=== PATIENT | male | born 1995 | race Caucasian/White ===

== ENCOUNTER 2017-10-04 00:50 | Emergency (ER) | payer SELFPAY ==
[~2017-10-04] VITALS: Ht 180.3 cm; Wt 160.0 kg
[2017-10-04] MEDS ORDERED: SODIUM CHLORIDE 0.9% 1,000 ML IV ONE ×3 (01:40→04:37)
[2017-10-04] MEDS ORDERED: INSULIN REGULAR (HUMULIN R) 300UNITS/3ML SUBCUT ONE (01:45)
[2017-10-04] MEDS ORDERED: KETOROLAC 30MG/ML VIAL IV ONE (01:45)
[2017-10-04] MEDS ORDERED: LORAZEPAM 2MG/ML CPJ IV ONE (01:45)
[2017-10-04] MEDS ORDERED: ONDANSETRON HCL 4MG/2ML VIAL IV ONE (02:30)
[2017-10-04 03:44] LABS: CLARITY URINE CLEAR (CLEAR); COLOR URINE YELLOW (YELLOW); KETONES URINE 4+ (NEGATIVE); LEUKOCYTE ESTERASE URINE NEGATIVE (NEGATIVE); NITRITE URINE NEGATIVE (NEGATIVE); OCCULT BLOOD URINE TRACE (NEGATIVE); PROTEIN URINE NEGATIVE (NEGATIVE); SPECIFIC GRAVITY URINE 1.035 (1.005-1.030); UROBILINOGEN URINE 0.2 E.U./dL (0.2-1.0)
[2017-10-04 03:51] LABS: CHLORIDE 97 mEq/L (98-107)
[2017-10-04 03:55] LABS: ETHANOL BLOOD < 10 mg/dL
[2017-10-04 04:06] LABS: *AMPHETAMINES SCREEN URINE PRESUMTIVE POSITIVE (NEGATIVE); *BARBITURATES SCREEN URINE NEGATIVE (NEGATIVE); *BENZODIAZEPINES SCREEN URINE NEGATIVE (NEGATIVE); *COCAINE SCREEN URINE NEGATIVE (NEGATIVE); METHADONE URINE SCREEN NEGATIVE (NEGATIVE)
[2017-10-04 04:08] LABS: CANNABINOID URINE SCREEN PRESUMTIVE POSITIVE (NEGATIVE); PHENCYCLIDINE URINE SCREEN NEGATIVE (NEGATIVE)
[2017-10-04 04:09] LABS: OPIATES URINE SCREEN NEGATIVE (NEGATIVE)
[2017-10-04 04:37] LABS: BASOPHILS % 0.4 % (0.0-2.0); EOSINOPHILS % 0.1 % (0.0-5.0); HEMATOCRIT. 38.7 % (42.0-52.0); MEAN CORPUSCULAR VOLUME 83.4 fL (80.0-94.0); MONOCYTES % 4.7 % (2.0-8.0); NEUTROPHILS % 83.8 % (40.0-76.0); PLATELET 256 x1000/uL (130-400); RED BLOOD CELL COUNT 4.64 mill/uL (4.7-6.1); RED CELL DISTRIBUTION WIDTH 13.7 % (11.6-14.6)
[2017-10-04 04:44] LABS: HEMOGLOBIN. 13.4 g/dL (14.0-18.0)
[2017-10-04] MEDS ORDERED: INSULIN REGULAR (DRIP) 100 UNITS in SODIUM CHLORIDE 0.9% 99 ML IV SCH (04:45)
[2017-10-04] MEDS ORDERED: LORAZEPAM 2MG/ML CPJ IM ONE (06:00)
[2017-10-04] MEDS ORDERED: SODIUM CHLORIDE 0.9% 1,000 ML IV SCH (06:39)
[2017-10-04] MEDS ORDERED: NA PHOS,M-B/NA PHOS,DI-BA ENEMA 118ML PR PRN (06:45)
[2017-10-04] MEDS ORDERED: ACETAMINOPHEN 325MG TABLET PO PRN (06:45)
[2017-10-04] MEDS ORDERED: CLONIDINE 0.1MG TABLET PO PRN (06:45)
[2017-10-04] MEDS ORDERED: DEXTROSE 50% WATER 50ML SYRINGE IV PRN (06:45)
[2017-10-04] MEDS ORDERED: IPRATROPIUM/ALBUTEROL 0.5-3(2.5)MG/3ML NEB INH PRN (06:45)
[2017-10-04] MEDS ORDERED: ZOLPIDEM TARTRATE 5MG TABLET PO PRN (06:45)
[2017-10-04] MEDS ORDERED: LORAZEPAM 0.5MG TABLET PO PRN (06:45)
[2017-10-04] MEDS ORDERED: KETOROLAC 15MG/ML VIAL IV PRN (06:45)
[2017-10-04] MEDS ORDERED: GUAIFENESIN 200MG/10ML SUGAR FREE UDC PO PRN (06:45)
[2017-10-04] MEDS ORDERED: DOCUSATE SODIUM 100MG CAPSULE PO PRN (06:45)
[2017-10-04] MEDS ORDERED: ONDANSETRON HCL 4MG/2ML VIAL IV PRN (06:45)
[2017-10-04] MEDS ORDERED: MAGNESIUM/ALUMINUM HYDROXIDE/SIMETHICONE 30ML UDC PO PRN (06:45)
[2017-10-04] MEDS ORDERED: DIPHENHYDRAMINE 50MG/ML VIAL IV PRN (06:45)
[2017-10-04 07:13] LABS: CHLORIDE 99 mEq/L (98-107)
[2017-10-04 07:20] LABS: LDL CHOLESTEROL 65 mg/dL (5-100)
[2017-10-04 07:22] LABS: HDL CHOLESTEROL 40 mg/dL (40-59)
[2017-10-04] MEDS ORDERED: INSULIN LISPRO 100 UNITS/ML SUBCUT SCH ×2 (07:50→08:20)
[2017-10-04] MEDS ORDERED: DIPHENHYDRAMINE 50MG/ML VIAL IM ONE (08:30)
[2017-10-04] MEDS ORDERED: OLANZAPINE 10 MG/VIAL IM ONE (08:30)
[2017-10-04] MEDS ORDERED: POTASSIUM CHLORIDE 20MEQ TABLET SR PO ONE (08:30)
[2017-10-04 08:43] LABS: CHLORIDE 100 mEq/L (98-107)
[2017-10-04 08:45] VITALS: BP 108/72
[2017-10-04] MEDS ORDERED: BLOOD SUGAR DIAGNOSTIC STRIP TEST SCH (09:00)
[2017-10-04] MEDS ORDERED: FAMOTIDINE 20MG TABLET PO SCH (09:00)
[2017-10-04] MEDS ORDERED: INSULIN GLARGINE UD 100 UNITS/ML SYR SUBCUT SCH (10:00)
[2017-10-05] MEDS ORDERED: GABA800T97 PO (09:15)
[2017-10-05] MEDS ORDERED: QUET300T2 PO (09:15)
== END 2017-10-04 09:48 | disposition left against medical advice (07) ==
LOC: ER 00:50 → EDBEDREQ 05:24 → ENRESERV 06:28 → CANBEDREQ 08:00 → ER 09:48
DX: E10.10 Type 1 diabetes mellitus with ketoacidosis without coma (principal); E10.65 Type 1 diabetes mellitus with hyperglycemia; R00.0 Tachycardia, unspecified; F15.10 Other stimulant abuse, uncomplicated; F17.200 Nicotine dependence, unspecified, uncomplicated; Z98.890 Other specified postprocedural states
CPT/HCPCS: 36415; 80048; 80053; 80061; 80305; 81003; 82010; 82962; 83036; 83690; 85025; 96361; 96365; 96366; 96372; 96375; 99291; G0482; J1815; J1885; J2060; J2405; J7030; Z7610; J7050

== ENCOUNTER 2017-10-04 19:02 | Inpatient (IN) | payer BC ==
[~2017-10-04] VITALS: Ht 175.3 cm; Wt 67.1 kg
[2017-10-04] MEDS ORDERED: MORPHINE SULFATE 4 MG/ML CPJ (NOT FOR IM USE) IV STA (21:09)
[2017-10-04] MEDS ORDERED: SODIUM CHLORIDE 0.9% 1,000 ML IV ONE ×3 (21:09)
[2017-10-04] MEDS ORDERED: ONDANSETRON HCL 4MG/2ML VIAL IV STA (21:09)
[2017-10-04 23:33] LABS: HEMATOCRIT. 32.3 % (42.0-52.0); HEMOGLOBIN. 10.8 g/dL (14.0-18.0); MEAN CORPUSCULAR VOLUME 86.7 fL (80.0-94.0); MEAN PLATELET VOLUME 8.8 fl (7.4-10.4); PLATELET 222 x1000/uL (130-400); RED BLOOD CELL COUNT 3.73 mill/uL (4.7-6.1); RED CELL DISTRIBUTION WIDTH 13.4 % (11.6-14.6)
[2017-10-04 23:41] LABS: CHLORIDE 93 mEq/L (98-107)
[2017-10-04] MEDS ORDERED: INSULIN REGULAR (HUMULIN R) 300UNITS/3ML SUBCUT ONE (23:45)
[2017-10-04 23:49] LABS: PLATELET ESTIMATE NORMAL
[2017-10-04 23:50] LABS: BETA HYDROXYBUTYRATE 9.8 mMol/L (0.0-0.3)
[2017-10-04 23:56] LABS: INR 1.2; PROTHROMBIN TIME 11.8 sec (9.1-11.1)
[2017-10-05] VITALS (9 sets, daily range): BP systolic 100–153; BP diastolic 50–77
[2017-10-05] MEDS ORDERED: ONDANSETRON HCL 4MG/2ML VIAL IV ONE (00:15)
[2017-10-05 01:14] LABS: CLARITY URINE CLEAR (CLEAR); COLOR URINE YELLOW (YELLOW); KETONES URINE 4+ (NEGATIVE); LEUKOCYTE ESTERASE URINE NEGATIVE (NEGATIVE); NITRITE URINE NEGATIVE (NEGATIVE); OCCULT BLOOD URINE TRACE (NEGATIVE); PROTEIN URINE NEGATIVE (NEGATIVE); SPECIFIC GRAVITY URINE 1.027 (1.005-1.030); UROBILINOGEN URINE 0.2 E.U./dL (0.2-1.0)
[2017-10-05] MEDS ORDERED: ONDANSETRON HCL 4MG/2ML VIAL IV STA (02:27)
[2017-10-05] MEDS ORDERED: INSULIN REGULAR (DRIP) 100 UNITS in SODIUM CHLORIDE 0.9% 100 ML IV NR (02:27)
[2017-10-05] MEDS ORDERED: SODIUM CHLORIDE 0.9% 1,000 ML IV ONE (02:27)
[2017-10-05 03:08] LABS: PHOSPHORUS 5.3 mg/dL (2.5-4.9)
[2017-10-05 04:44] LABS: CHLORIDE 99 mEq/L (98-107)
[2017-10-05 05:56] LABS: CHLORIDE 101 mEq/L (98-107)
[2017-10-05] MEDS ORDERED: NA PHOS,M-B/NA PHOS,DI-BA ENEMA 118ML PR PRN (08:15)
[2017-10-05] MEDS ORDERED: DOCUSATE SODIUM 100MG CAPSULE PO PRN (08:15)
[2017-10-05] MEDS ORDERED: DIPHENHYDRAMINE 50MG/ML VIAL IV PRN (08:15)
[2017-10-05] MEDS ORDERED: ACETAMINOPHEN 650MG/20.3ML UDC GT PRN (08:15)
[2017-10-05] MEDS ORDERED: CLONIDINE 0.1MG TABLET PO PRN (08:15)
[2017-10-05] MEDS ORDERED: ACETAMINOPHEN 650MG SUPP PR PRN (08:15)
[2017-10-05] MEDS ORDERED: GUAIFENESIN 200MG/10ML SUGAR FREE UDC PO PRN (08:15)
[2017-10-05] MEDS ORDERED: MAGNESIUM/ALUMINUM HYDROXIDE/SIMETHICONE 30ML UDC PO PRN (08:15)
[2017-10-05] MEDS ORDERED: IPRATROPIUM/ALBUTEROL 0.5-3(2.5)MG/3ML NEB INH PRN (08:15)
[2017-10-05] MEDS ORDERED: DEXTROSE 50% WATER 50ML SYRINGE IV PRN ×2 (08:15)
[2017-10-05] MEDS ORDERED: ACETAMINOPHEN 325MG TABLET PO PRN (08:15)
[2017-10-05] MEDS ORDERED: HYDROCODONE/ACETAMINOPHEN 10/325MG TABLET PO PRN (08:15)
[2017-10-05 08:20] LABS: CHLORIDE 105 mEq/L (98-107)
[2017-10-05] MEDS ORDERED: SODIUM CHLORIDE 0.45% 1,000 ML IV SCH (09:00)
[2017-10-05] MEDS ORDERED: INSULIN REGULAR (DRIP) 100 UNITS in SODIUM CHLORIDE 0.9% 100 ML IV SCH (09:00)
[2017-10-05] MEDS: BLOOD SUGAR DIAGNOSTIC STRIP TEST SCH ×11 (09:00→23:39)
[2017-10-05] MEDS ORDERED: GABA800T97 PO (09:15)
[2017-10-05] MEDS ORDERED: QUET300T2 PO (09:15)
[2017-10-05] MEDS: ONDANSETRON HCL 4MG/2ML VIAL IV PRN (09:32)
[2017-10-05] MEDS: FAMOTIDINE 20MG/2ML VIAL IV SCH ×2 (09:32→20:45)
[2017-10-05] MEDS: HYDROCODONE/ACETAMINOPHEN 5/325MG TABLET PO PRN ×2 (09:37→20:46)
[2017-10-05 10:04] LABS: CHLORIDE 105 mEq/L (98-107)
[2017-10-05 10:10] LABS: PHOSPHORUS 2.8 mg/dL (2.5-4.9)
[2017-10-05 10:34] LABS: TOTAL IRON BINDING CAPACITY 207 ug/dL (250-450)
[2017-10-05] MEDS: DEXT 5%/0.45% NACL 1000ML 1,000 ML IV SCH ×3 (11:21→19:32)
[2017-10-05] MEDS: GABAPENTIN 400MG CAPSULE PO SCH ×3 (11:22→22:25)
[2017-10-05] MEDS: QUETIAPINE FUMARATE 50MG TABLET PO SCH ×3 (11:22→21:39)
[2017-10-05] MEDS: METOCLOPRAMIDE HCL 10MG/2ML VIAL IV SCH ×3 (11:22→23:38)
[2017-10-05] MEDS: SODIUM CHLORIDE 0.9% INJ 3ML FLUSH IVF SCH ×2 (13:10→21:39)
[2017-10-05 15:39] LABS: CLARITY URINE CLEAR (CLEAR); COLOR URINE YELLOW (YELLOW); KETONES URINE 3+ (NEGATIVE); LEUKOCYTE ESTERASE URINE NEGATIVE (NEGATIVE); NITRITE URINE NEGATIVE (NEGATIVE); OCCULT BLOOD URINE 2+ (NEGATIVE); PROTEIN URINE 1+ (NEGATIVE); SPECIFIC GRAVITY URINE 1.029 (1.005-1.030); UROBILINOGEN URINE 0.2 E.U./dL (0.2-1.0)
[2017-10-05 16:25] LABS: *AMPHETAMINES SCREEN URINE NEGATIVE (NEGATIVE); *BARBITURATES SCREEN URINE NEGATIVE (NEGATIVE); *BENZODIAZEPINES SCREEN URINE NEGATIVE (NEGATIVE); *COCAINE SCREEN URINE NEGATIVE (NEGATIVE); METHADONE URINE SCREEN NEGATIVE (NEGATIVE)
[2017-10-05 16:26] LABS: CANNABINOID URINE SCREEN PRESUMTIVE POSITIVE (NEGATIVE); OPIATES URINE SCREEN PRESUMTIVE POSITIVE (NEGATIVE); PHENCYCLIDINE URINE SCREEN NEGATIVE (NEGATIVE)
[2017-10-05 17:12] LABS: CHLORIDE 110 mEq/L (98-107)
[2017-10-05] MEDS ORDERED: POTASSIUM CHLORIDE 20MEQ TABLET SR PO NR (19:00)
[2017-10-06] MEDS ORDERED: DEXTROSE 50% WATER 50ML SYRINGE IV PRN
[2017-10-06] MEDS: INSULIN LISPRO 100 UNITS/ML SUBCUT SCH ×4 (00:26→17:49)
[2017-10-06] MEDS: BLOOD SUGAR DIAGNOSTIC STRIP TEST SCH ×3 (05:09→17:35)
[2017-10-06] MEDS: METOCLOPRAMIDE HCL 10MG/2ML VIAL IV SCH ×3 (05:27→17:49)
[2017-10-06] MEDS: GABAPENTIN 400MG CAPSULE PO SCH ×3 (05:27→21:26)
[2017-10-06] MEDS: SODIUM CHLORIDE 0.9% INJ 3ML FLUSH IVF SCH ×3 (05:28→22:00)
[2017-10-06 05:34] LABS: BASOPHILS % 0.3 % (0.0-2.0); EOSINOPHILS % 0.7 % (0.0-5.0); HEMATOCRIT. 32.9 % (42.0-52.0); HEMOGLOBIN. 11.5 g/dL (14.0-18.0); LYMPHOCYTES % 25.7 % (20.0-50.0); MEAN CORPUSCULAR HEMOGLOBIN 29.5 pg (28.0-32.0); MEAN CORPUSCULAR VOLUME 84.4 fL (80.0-94.0); MEAN PLATELET VOLUME 7.7 fl (7.4-10.4); MONOCYTES % 6.9 % (2.0-8.0); NEUTROPHILS % 66.4 % (40.0-76.0); PLATELET 202 x1000/uL (130-400); RED CELL DISTRIBUTION WIDTH 13.5 % (11.6-14.6)
[2017-10-06 05:39] VITALS: BP 109/65
[2017-10-06 05:49] LABS: CHLORIDE 108 mEq/L (98-107)
[2017-10-06 06:00] LABS: PHOSPHORUS 1.3 mg/dL (2.5-4.9)
[2017-10-06 06:01] LABS: LDL CHOLESTEROL 54 mg/dL (5-100)
[2017-10-06 06:02] LABS: HDL CHOLESTEROL 26 mg/dL (40-59)
[2017-10-06] MEDS ORDERED: INSULIN LISPRO 100 UNITS/ML SUBCUT SCH (08:20)
[2017-10-06] MEDS: FAMOTIDINE 20MG/2ML VIAL IV SCH ×2 (09:00→21:26)
[2017-10-06] MEDS: QUETIAPINE FUMARATE 50MG TABLET PO SCH ×3 (09:45→21:26)
[2017-10-06 09:55] VITALS: BP 145/80
[2017-10-06] MEDS ORDERED: POTASSIUM PHOS,M-BASIC-D-BASIC 30 MMOL in SODIUM CHLORIDE 0.9% 500 ML IV NR (11:00)
[2017-10-06] MEDS: ONDANSETRON HCL 4MG/2ML VIAL IV PRN (12:32)
[2017-10-06 12:35] VITALS: BP 131/70
[2017-10-06] MEDS: HYDROCODONE/ACETAMINOPHEN 5/325MG TABLET PO PRN ×3 (12:35→22:18)
[2017-10-06 17:56] VITALS: BP 143/81
[2017-10-06 20:00] VITALS: BP 138/77
[2017-10-07] MEDS: BLOOD SUGAR DIAGNOSTIC STRIP TEST SCH ×3 (00:55→12:00)
[2017-10-07] MEDS: METOCLOPRAMIDE HCL 10MG/2ML VIAL IV SCH ×3 (00:56→12:00)
[2017-10-07] MEDS: SODIUM CHLORIDE 0.9% INJ 3ML FLUSH IVF SCH (05:26)
[2017-10-07] MEDS: GABAPENTIN 400MG CAPSULE PO SCH (05:27)
[2017-10-07] MEDS: INSULIN LISPRO 100 UNITS/ML SUBCUT SCH ×3 (05:31→12:00)
[2017-10-07 06:00] VITALS: BP 110/65
[2017-10-07] MEDS: HYDROCODONE/ACETAMINOPHEN 5/325MG TABLET PO PRN ×2 (06:21→10:43)
[2017-10-07] MEDS: QUETIAPINE FUMARATE 50MG TABLET PO SCH (08:20)
[2017-10-07] MEDS: FAMOTIDINE 20MG/2ML VIAL IV SCH (09:32)
[2017-10-07 10:00] VITALS: BP 143/72
[2017-10-07 11:23] VITALS: BP 143/72
== END 2017-10-07 13:00 | disposition home or self-care (01) | DRG 682 ==
LOC: ER 19:02 → CVICU 10-05 05:30 → EDBEDREQTM 10-05 05:35 → EDBEDREQ 10-05 05:35 → ENRESERV 10-05 06:48
PROVIDERS: ADMIT Family Medicine; ATTEND Family Medicine
DX: N17.9 Acute kidney failure, unspecified (principal); E10.10 Type 1 diabetes mellitus with ketoacidosis without coma; E87.1 Hypo-osmolality and hyponatremia; D63.8 Anemia in other chronic diseases classified elsewhere; D72.829 Elevated white blood cell count, unspecified; E83.39 Other disorders of phosphorus metabolism; E86.0 Dehydration; F17.200 Nicotine dependence, unspecified, uncomplicated; F31.9 Bipolar disorder, unspecified; E10.40 Type 1 diabetes mellitus with diabetic neuropathy, unspecified; Z96.41 Presence of insulin pump (external) (internal); R74.8 Abnormal levels of other serum enzymes; Z79.4 Long term (current) use of insulin; Z79.899 Other long term (current) drug therapy
CPT/HCPCS: 36415; 71045; 80048; 80053; 80061; 80305; 81003; 82010; 82962; 83036; 83540; 83550; 83690; 83735; 84100; 85025; 85610; 87040; 87086; 96361; 96374; 96375; 96376; 99291; J1815; J2270; J2405; J2765; J3490; J7030; J7040; J7050